=== PATIENT | female | born 1935 | race Caucasian/White ===

== ENCOUNTER 2018-05-31 18:09 | Emergency (ER) | payer MEDICARE ==
[~2018-05-31] VITALS: Ht 152.4 cm; Wt 59.1 kg
[~2018-05-31 18:09] MED LIST: ASPIRIN 81M81 MG/TA2 PO; BENADRYL25 M2 PO; CALCIUM600 M2 PO; CELEXA40 MG PO; DUO-KAPS1 CAP PO; FLAX OIL1000 MG PO; LIPITOR 10MG10 MG PO; MOTRIN 400400 MG/TAB PO; NEURONTIN100 MG/CAP PO; REMERON45 MG PO; TYLENOL ARTHRI650 M1 PO; TYLENOL PM EXTR1 TA1 PO; ZANTAC 150MG T150 MG PO
[2018-05-31 18:14] VITALS: TEMP 98
[2018-05-31 19:37] VITALS: BP 132/66; PULSE 82
== END 2018-05-31 22:15 | disposition home or self-care (01) ==
LOC: COL.ER 18:09
DX: T18.128A Food in esophagus causing other injury, initial encounter (principal); F32.9 Major depressive disorder, single episode, unspecified; Z79.82 Long term (current) use of aspirin

== ENCOUNTER 2020-09-03 16:01 | Emergency (ER) | payer MEDICARE ==
[~2020-09-03] VITALS: Ht 152.4 cm; Wt 54.5 kg
[2020-09-03 16:07] VITALS: TEMP 96.7
[2020-09-03 16:36] LABS: BASO # 0.1 (0.0-0.2); BASO % 0.7 % (0.0-2.0); EOS # 0.2 (0.0-0.7); EOS % 3.1 % (0-4.0); GRAN # 3.4 (1.4-6.5); HEMATOCRIT 40.4 % (37.0-47.0); HEMOGLOBIN 13.4 g/dl (12.5-16.0); LYMPH # 2.7 (1.2-3.4); LYMPH % 36.9 % (20.0-51.0); MEAN CELL VOLUME 93 fl (80.0-100.0); MEAN CORPUSCULAR HEMOGLOBIN 31 pg (27.0-31.0); MEAN CORPUSCULAR HGB CONC 33 g/dl (33.0-37.0); MEAN PLATELET VOLUME 10.9 fl (7.4-10.4); MONO % 13.2 % (1.7-9.3); PLATELET COUNT 214 K/mm3 (130-400); RED BLOOD COUNT 4.35 M/mm3 (4.10-5.30); REDCELL DISTRIBUTION WIDTH-CV 13.2 % (11.5-14.5)
[2020-09-03 17:04] LABS: ALANINE AMINOTRANSFERASE 15 U/L (4-34); ALBUMIN 4.1 gm/dL (3.5-5.0); ALKALINE PHOSPHATASE 48 U/L (50-136); ANION GAP 6 mmol/L (7-16); AST,SGOT 29 U/L (15-37); BILIRUBIN,TOTAL 0.5 mg/dL (0.0-1.0); BLOOD UREA NITROGEN 21 mg/dL (7-17); CALCIUM 9.5 mg/dL (8.4-10.2); CARBON DIOXIDE 28 mmol/L (22-30); CHLORIDE 106 mmol/L (98-107); CREATININE, serum 0.79 (0.52-1.25); GLUCOSE 94 mg/dL (74-106); POTASSIUM 3.9 mmol/L (3.4-5.0); SODIUM 141 mmol/L (137-145); TOTAL PROTEIN 7.2 gm/dL (6.4-8.2)
[2020-09-03 17:19] LABS: TROPONIN-I < 0.012 ng/mL (0.000-0.035)
[2020-09-03 18:15] VITALS: BP 145/76; PULSE 72
== END 2020-09-03 18:15 | disposition home or self-care (01) ==
LOC: COL.ER 16:01
PROVIDERS: Physician Assistant
DX: R00.2 Palpitations (principal); F32.9 Major depressive disorder, single episode, unspecified; K21.9 Gastro-esophageal reflux disease without esophagitis; Z88.6 Allergy status to analgesic agent; Z88.1 Allergy status to other antibiotic agents

== ENCOUNTER 2021-02-07 16:21 | Emergency (ER) | payer MEDICARE ==
[~2021-02-07] VITALS: Ht 152.4 cm; Wt 55.5 kg
[2021-02-07 16:34] VITALS: TEMP 98.2
[2021-02-07 16:54] LABS: BASO % 0.5 % (0.0-2.0); EOS # 0.2 (0.0-0.7); GRAN # 3.8 (1.4-6.5); GRAN % 49.4 % (42.2-75.2); HEMATOCRIT 39.1 % (37.0-47.0); HEMOGLOBIN 12.8 g/dl (12.5-16.0); LYMPH # 2.7 (1.2-3.4); LYMPH % 34.7 % (20.0-51.0); MEAN CELL VOLUME 93 fl (80.0-100.0); MEAN CORPUSCULAR HEMOGLOBIN 30 pg (27.0-31.0); MEAN CORPUSCULAR HGB CONC 33 g/dl (33.0-37.0); MEAN PLATELET VOLUME 10.9 fl (7.4-10.4); MONO # 0.9 (0.1-0.6); MONO % 12.1 % (1.7-9.3); PLATELET COUNT 224 K/mm3 (130-400); RED BLOOD COUNT 4.22 M/mm3 (4.10-5.30); REDCELL DISTRIBUTION WIDTH-CV 13.2 % (11.5-14.5)
[2021-02-07 17:05] LABS: ALANINE AMINOTRANSFERASE 13 U/L (4-34); ALBUMIN 3.8 gm/dL (3.5-5.0); ALKALINE PHOSPHATASE 48 U/L (50-136); ANION GAP 3 mmol/L (7-16); AST,SGOT 29 U/L (15-37); BILIRUBIN,TOTAL 0.3 mg/dL (0.0-1.0); BLOOD UREA NITROGEN 21 mg/dL (7-17); CALCIUM 9.6 mg/dL (8.4-10.2); CARBON DIOXIDE 28 mmol/L (22-30); CHLORIDE 109 mmol/L (98-107); CREATININE, serum 0.66 (0.52-1.25); GLUCOSE 95 mg/dL (74-106); POTASSIUM 4.1 mmol/L (3.4-5.0); SODIUM 140 mmol/L (137-145)
[2021-02-07 17:18] LABS: TROPONIN-I < 0.012 ng/mL (0.000-0.035)
[2021-02-07 18:11] VITALS: BP 190/84; PULSE 64
== END 2021-02-07 18:15 | disposition home or self-care (01) ==
LOC: COL.ER 16:21
PROVIDERS: Physician Assistant
DX: R00.2 Palpitations (principal); K21.9 Gastro-esophageal reflux disease without esophagitis; F32.9 Major depressive disorder, single episode, unspecified; Z87.891 Personal history of nicotine dependence; Z79.899 Other long term (current) drug therapy